=== PATIENT | male | born 1960 | race African-American/Black ===

== ENCOUNTER 2016-07-30 15:30 | Emergency (ER) | payer MEDICAID ==
[2016-07-30] MEDS ORDERED: SODIUM CHLORIDE 0.9% 1,000 ML ONE (18:43)
== END 2016-07-30 21:12 | disposition home or self-care (01) ==
LOC: ER 15:30
CPT/HCPCS: 36415; 70450; 80053; 81003; 82553; 82947; 84484; 85025; 85610; 85730; 93005; 96360